=== PATIENT | male | born 1945 | race Two or more races ===

== ENCOUNTER 2017-09-19 17:26 | Inpatient (IN) | payer OTHER ==
[~2017-09-19] VITALS: Ht 167.6 cm; Wt 93.5 kg
[2017-09-19] MEDS ORDERED: HEPARIN SODIUM (PORCINE) 5000 UNITS/ML 1ML VIAL ONE (17:34)
[2017-09-19] MEDS ORDERED: ASPirin 81 mg TAB PO ONE (17:45)
[2017-09-19] MEDS ORDERED: HEPARIN SODIUM (PORCINE) 5000 UNITS/ML 1ML VIAL IV ONE ×2 (17:45→19:00)
[2017-09-19] MEDS ORDERED: IODIXANOL 320MG/ML 100ML BTL IV ONE (17:48)
[2017-09-19] MEDS ORDERED: LIDOCAINE 2%HCL (LOCAL ANESTH.) INJ 20ML MDV ONE (17:48)
[2017-09-19] MEDS ORDERED: fentaNYL CITRATE 100 MCG/2 ML VL ONE (17:55)
[2017-09-19] MEDS ORDERED: SODIUM CHL 0.9% 50 ML ONE (17:55)
[2017-09-19] MEDS ORDERED: MIDAZOLAM HCL 1MG/1ML-2 ML VIAL ONE (17:55)
[2017-09-19] MEDS ORDERED: ANGIOMAX 250 MG VIAL IV ONE (17:55)
[2017-09-19 17:56] LABS: Basophils # (auto) 0.1 uL; Basophils % (auto) 0.6 % (0.0-2.0); Eosinophils # (auto) 0.1 uL; Eosinophils % (auto) 1.3 % (0.0-7.0); Hematocrit 40.4 % (41.0-53.0); Hemoglobin 12.8 g/dL (13.5-17.5); Lymphocytes # (auto) 4.7 uL; Lymphocytes % (auto) 42.6 % (10.0-50.0); Mean Corpuscular Hemoglobin 30.9 pg (28.0-32.0); Mean Corpuscular Hgb Conc. 31.6 g/dL (32.0-36.0); Mean Corpuscular Volume 97.7 fL (80.0-100.0); Monocytes # (auto) 0.5 uL; Neutrophils # (auto) 5.6 uL; Neutrophils % (auto) 50.5 % (37.0-80.0); Nucleated Red Blood Cells % 0.3 %; Platelet Count (auto) 262 10^3/uL (140-450); Red Blood Cells 4.13 10^6/uL (4.5-5.90); Red Cell Distribution Width 15.7 % (11.8-14.3)
[2017-09-19] MEDS ORDERED: ATROPINE SULF 0.5 MG/5ML SYR ONE (18:03)
[2017-09-19 18:04] LABS: INR 0.95 (0.9-1.15); Partial Thromboplastin Time 26.2 sec (22.64-33.71); Prothrombin Time 10.3 sec (9.37-12.3)
[2017-09-19 18:11] LABS: Albumin 3.5 g/dL (3.4-5.0); BUN/Creatinine Ratio 19.5; Bilirubin, Total 0.3 mg/dL (0.2-1.0); Calcium 8.1 mg/dL (8.5-10.1); Magnesium 2.5 mg/dL (1.6-2.6); Potassium 3.1 mmol/L (3.5-5.1); Total Protein 7.6 g/dL (6.4-8.2)
[2017-09-19] MEDS ORDERED: EPTIFIBATIDE INJ (2MG/ML) 10ML VIAL IV ONE ×2 (18:17→18:19)
[2017-09-19] MEDS: HEPARIN DRIP/D5W 100UNITS/ML 250 ML IV SCH (18:44)
[2017-09-19] MEDS ORDERED: HEPARIN DRIP/D5W 100UNITS/ML 250 ML IV SCH (18:58)
[2017-09-19] MEDS ORDERED: NITROGLYCERIN 0.4 MG SL TAB SL PRN (19:00)
[2017-09-19] MEDS ORDERED: MORPHINE SULF INJ 2 MG/ML SYRINGE 1ML IV PRN ×2 (19:00→21:15)
[2017-09-19] MEDS ORDERED: POTASSIUM CHL 20 Meq TABLET PO ONE (19:15)
[2017-09-19] MEDS ORDERED: FUROSEMIDE 20 MG/2 ML VIAL IV ONE (19:30)
[2017-09-19] MEDS ORDERED: LIDOCAINE 50MG/5ML INJ 5ML SYRINGE IV ONE (19:30)
[2017-09-19 20:04] LABS: Basophils # (auto) 0 uL; Basophils % (auto) 0.2 % (0.0-2.0); Eosinophils # (auto) 0 uL; Eosinophils % (auto) 0.2 % (0.0-7.0); Hematocrit 36.9 % (41.0-53.0); Hemoglobin 11.6 g/dL (13.5-17.5); Mean Corpuscular Hemoglobin 31.1 pg (28.0-32.0); Mean Corpuscular Hgb Conc. 31.4 g/dL (32.0-36.0); Mean Corpuscular Volume 98.9 fL (80.0-100.0); Monocytes # (auto) 0.9 uL; Monocytes % (auto) 4.5 % (0.0-12.0); Neutrophils # (auto) 17.6 uL; Neutrophils % (auto) 90.1 % (37.0-80.0); Platelet Count (auto) 216 10^3/uL (140-450); Red Blood Cells 3.73 10^6/uL (4.5-5.90); Red Cell Distribution Width 15.4 % (11.8-14.3); White Blood Cell 19.6 10^3/uL (4.4-10.8)
[2017-09-19] MEDS ORDERED: DOPamine 1600MCG/ML D5W 250 ML IV ONE (20:05)
[2017-09-19] MEDS ORDERED: SODIUM CHLORIDE 0.9% 250 ML IV ONE (20:15)
[2017-09-19] MEDS: DOPamine 1600MCG/ML D5W 250 ML IV SCH (20:15)
[2017-09-19] MEDS ORDERED: NOREPINEPHRINE 8 MG/250ML KIT 250 ML IV ONE (20:19)
[2017-09-19 20:20] LABS: INR 1.83 (0.9-1.15); Prothrombin Time 20.1 sec (9.37-12.3)
[2017-09-19] MEDS: NOREPINEPHRINE 8 MG/250ML KIT 250 ML IV SCH ×2 (20:20→23:48)
[2017-09-19] MEDS ORDERED: NOREPINEPHRINE 8 MG/250ML KIT 250 ML IV SCH (21:00)
[2017-09-19] MEDS ORDERED: MORPHINE SULF INJ 2 MG/ML SYRINGE 1ML ONE (21:09)
[2017-09-19] MEDS ORDERED: PANTOPRAZOLE 40 MG/10 ML VIAL IV ONE ×2 (21:10→21:15)
[2017-09-19] MEDS ORDERED: ONDANSETRON HCL 4 MG/2 ML VIAL ONE (21:28)
[2017-09-19 21:36] LABS: Basophils # (auto) 0 uL; Basophils % (auto) 0.2 % (0.0-2.0); Eosinophils # (auto) 0 uL; Eosinophils % (auto) 0.2 % (0.0-7.0); Hematocrit 29.5 % (41.0-53.0); Hemoglobin 9.2 g/dL (13.5-17.5); Lymphocytes # (auto) 1.1 uL; Lymphocytes % (auto) 6.9 % (10.0-50.0); Mean Corpuscular Hemoglobin 30.7 pg (28.0-32.0); Mean Corpuscular Hgb Conc. 31.3 g/dL (32.0-36.0); Mean Corpuscular Volume 98.2 fL (80.0-100.0); Monocytes # (auto) 1.1 uL; Monocytes % (auto) 6.6 % (0.0-12.0); Neutrophils # (auto) 14.4 uL; Neutrophils % (auto) 86.1 % (37.0-80.0); Platelet Count (auto) 208 10^3/uL (140-450); Red Cell Distribution Width 15.3 % (11.8-14.3); White Blood Cell 16.7 10^3/uL (4.4-10.8)
[2017-09-19] MEDS ORDERED: VASOPRESSIN 20 UNIT/ML ONE ×2 (21:50→21:57)
[2017-09-19] MEDS ORDERED: PHENYLEPHRINE IV 250 ML IV ONE ×2 (21:52→23:42)
[2017-09-19 21:54] LABS: INR 1.28 (0.9-1.15); Partial Thromboplastin Time 66.4 sec (22.64-33.71)
[2017-09-19] MEDS: PHENYLEPHRINE INJ 20 MG in SODIUM CHL 0.9% 250 ML IV SCH ×2 (21:55→23:48)
[2017-09-19] MEDS: ATORVASTATIN 20 MG TAB PO SCH (22:00)
[2017-09-19] MEDS ORDERED: EPINEPHrine HCL 250 ML IV ONE (22:06)
[2017-09-19] MEDS: EPINEPHrine HCL 250 ML IV SCH ×2 (22:09→23:48)
[2017-09-19 22:10] LABS: Albumin 2.4 g/dL (3.4-5.0); BUN/Creatinine Ratio 21.9; Bilirubin, Total 0.4 mg/dL (0.2-1.0); Calcium 7.1 mg/dL (8.5-10.1); Magnesium 2.2 mg/dL (1.6-2.6); Potassium 3.6 mmol/L (3.5-5.1); Total Protein 5.2 g/dL (6.4-8.2)
[2017-09-19] MEDS ORDERED: SUCCINYLCHOLINE CHLORIDE 20 MG/ML 10ML VIAL IV ONE (22:21)
[2017-09-19] MEDS ORDERED: MIDAZOLAM HCL 5 MG/ML-1ML VIAL ONE (22:22)
[2017-09-19] MEDS ORDERED: ETOMIDATE (2MG/ML) 20ML VIAL IV ONE (22:22)
[2017-09-19 22:45] VITALS: BP 83/35
[2017-09-19] MEDS ORDERED: PROTAMINE SULFATE 10 MG/ML 5ML VIAL IV ONE ×2 (22:45→22:59)
[2017-09-19] MEDS ORDERED: MIDAZOLAM DRIP 50 mg/50mL 50 ML IV ONE (22:56)
[2017-09-19] MEDS: MIDAZOLAM DRIP 50 mg/50mL 50 ML IV SCH (23:00)
[2017-09-19 23:56] LABS: Basophils # (auto) 0.1 uL; Eosinophils # (auto) 0.2 uL
[2017-09-19 23:58] LABS: Basophils % (auto) 0.9 % (0.0-2.0); Eosinophils % (auto) 1.3 % (0.0-7.0); Hematocrit 41.3 % (41.0-53.0); Hemoglobin 13.7 g/dL (13.5-17.5); Lymphocytes # (auto) 5.3 uL; Lymphocytes % (auto) 44.9 % (10.0-50.0); Mean Corpuscular Hemoglobin 32.4 pg (28.0-32.0); Mean Corpuscular Volume 98.1 fL (80.0-100.0); Monocytes # (auto) 0.7 uL; Neutrophils # (auto) 5.6 uL; Neutrophils % (auto) 46.9 % (37.0-80.0); Nucleated Red Blood Cells % 0.4 %; Platelet Count (auto) 260 10^3/uL (140-450); Red Blood Cells 4.21 10^6/uL (4.5-5.90); Red Cell Distribution Width 15.7 % (11.8-14.3); White Blood Cell 11.9 10^3/uL (4.4-10.8)
[2017-09-20] VITALS (109 sets, daily range): BP systolic 54–201; BP diastolic 21–143
[2017-09-20] MEDS: VASOPRESSIN 50 UNITS in D5W 5% 247.5 ML IV SCH ×2
[2017-09-20] MEDS ORDERED: ETOMIDATE (2MG/ML) 20ML VIAL IV ONE
[2017-09-20] MEDS ORDERED: EPINEPHrine HCL 1 MG/10 ML SYRG IV ONE
[2017-09-20] MEDS ORDERED: MIDAZOLAM HCL 1MG/1ML-2 ML VIAL IM ONE
[2017-09-20] MEDS ORDERED: SUCCINYLCHOLINE CHLORIDE 20 MG/ML 10ML VIAL IV ONE
[2017-09-20] MEDS ORDERED: PHYTONADIONE (VIT K)10 MG/ML 1ML VIAL SUBCUT ONE
[2017-09-20 00:11] LABS: Albumin 1.7 g/dL (3.4-5.0); BUN/Creatinine Ratio 15.5; Bilirubin, Total 0.3 mg/dL (0.2-1.0); Calcium 6.4 mg/dL (8.5-10.1); Potassium 3.7 mmol/L (3.5-5.1); Total Protein 3.7 g/dL (6.4-8.2)
[2017-09-20 00:20] LABS: INR 1.36 (0.9-1.15)
[2017-09-20 00:24] LABS: Partial Thromboplastin Time > 170.00 sec (22.64-33.71)
[2017-09-20] MEDS ORDERED: VASOPRESSIN 20 UNIT/ML ONE (01:00)
[2017-09-20] MEDS ORDERED: PHENYLEPHRINE IV 500 ML IV ONE (01:04)
[2017-09-20] MEDS: PHENYLEPHRINE INJ 20 MG in SODIUM CHL 0.9% 250 ML IV SCH (01:10)
[2017-09-20 01:21] LABS: Lactic Acid w/Reflex 11.5 mmol/L (0.4-2.0)
[2017-09-20] MEDS ORDERED: InsuLIN REG 1unit/0.01ml Soln (100units/ml) SC ONE (01:45)
[2017-09-20] MEDS ORDERED: SODIUM BICARBONATE 8.4 % INJ 50ML VIAL IV ONE ×2 (01:45→04:45)
[2017-09-20] MEDS ORDERED: SODIUM BICARBONATE 8.4% INJ 50ML SYRINGE ONE (01:47)
[2017-09-20] MEDS ORDERED: InsuLIN REG 1unit/0.01ml Soln (100units/ml) ONE (01:49)
[2017-09-20] MEDS: EPINEPHrine HCL 250 ML IV SCH ×2 (02:39→06:42)
[2017-09-20] MEDS: DOPamine 1600MCG/ML D5W 250 ML IV SCH ×2 (02:50→07:43)
[2017-09-20 03:08] LABS: Mean Corpuscular Hemoglobin 30.5 pg (28.0-32.0); Red Blood Cells 1.75 10^6/uL (4.5-5.90)
[2017-09-20 03:10] LABS: Hematocrit 17.6 % (41.0-53.0); Mean Corpuscular Hgb Conc. 30.3 g/dL (32.0-36.0); Mean Corpuscular Volume 100.8 fL (80.0-100.0); Platelet Count (auto) 95 10^3/uL (140-450); Red Cell Distribution Width 16.9 % (11.8-14.3)
[2017-09-20 03:14] LABS: Hemoglobin 5.3 g/dL (13.5-17.5)
[2017-09-20 03:18] LABS: Basophils % (manual) 0 (0.0-2.0); Blast Cells 0; Eosinophils % (manual) 0 (0-7); Metamyelocytes % 0; Myelocytes % 0; Promyelocytes % 0; Reactive Lymphocytes 0
[2017-09-20] MEDS ORDERED: PHENYLEPHRINE HCL 10 MG/ML VL ONE ×2 (03:25→04:37)
[2017-09-20] MEDS ORDERED: PHENYLEPHRINE IV 250 ML IV ONE (03:26)
[2017-09-20] MEDS ORDERED: phytonadione 10 MG in SODIUM CHL 0.9% 50 ML IV ONE (04:00)
[2017-09-20] MEDS ORDERED: CALCIUM GLUC 4.65meq/50ml D5AE 50 ML IV ONE (04:00)
[2017-09-20 04:03] LABS: Albumin 1.6 g/dL (3.4-5.0); BUN/Creatinine Ratio 12.3; Bilirubin, Total 0.4 mg/dL (0.2-1.0); Calcium 6.1 mg/dL (8.5-10.1); Potassium 3.8 mmol/L (3.5-5.1); Total Protein 3.4 g/dL (6.4-8.2)
[2017-09-20 04:06] LABS: INR 1.47 (0.9-1.15); Prothrombin Time 16.1 sec (9.37-12.3)
[2017-09-20] MEDS: PHENYLEPHRINE INJ 40 MG in SODIUM CHL 0.9% 250 ML IV SCH ×3 (04:15→10:53)
[2017-09-20] MEDS: ACCU-CHEK COMFORT CURVE STRIP VI SCH ×5 (04:26→20:47)
[2017-09-20] MEDS: InsuLIN REG 1unit/0.01ml Soln (100units/ml) SC SCH ×5 (04:26→20:47)
[2017-09-20] MEDS ORDERED: phytonadione 1 ML ONE (04:37)
[2017-09-20] MEDS ORDERED: PROTAMINE SULFATE 50 MG in SODIUM CHL 0.9% 50 ML IV ONE (04:45)
[2017-09-20] MEDS ORDERED: PROTAMINE SULFATE 10 MG/ML 5ML VIAL IV ONE (04:51)
[2017-09-20] MEDS: NOREPINEPHRINE 8 MG/250ML KIT 250 ML IV SCH (05:49)
[2017-09-20 07:56] LABS: Band Neutrophils % (manual) 6; Lymphocytes % (manual) 8 (10.0-50.0); Monocytes % (manual) 2 (0-12)
[2017-09-20] MEDS: DOPamine 3200MCG/ML 250 ML IV SCH (08:15)
[2017-09-20 08:48] LABS: Basophils # (auto) 0 uL; Basophils % (auto) 0.2 % (0.0-2.0); Eosinophils # (auto) 0 uL; Eosinophils % (auto) 0.1 % (0.0-7.0); Hematocrit 33.9 % (41.0-53.0); Hemoglobin 10.8 g/dL (13.5-17.5); Lymphocytes # (auto) 1.1 uL; Lymphocytes % (auto) 7.2 % (10.0-50.0); Mean Corpuscular Hgb Conc. 31.9 g/dL (32.0-36.0); Mean Corpuscular Volume 94.2 fL (80.0-100.0); Monocytes # (auto) 0.5 uL; Monocytes % (auto) 3.2 % (0.0-12.0); Neutrophils # (auto) 14.1 uL; Neutrophils % (auto) 89.3 % (37.0-80.0); Nucleated Red Blood Cells % 0.1 %; Platelet Count (auto) 102 10^3/uL (140-450); Red Cell Distribution Width 16.2 % (11.8-14.3); White Blood Cell 15.8 10^3/uL (4.4-10.8)
[2017-09-20 09:10] LABS: INR 1.96 (0.9-1.15); Partial Thromboplastin Time 58.6 sec (22.64-33.71); Prothrombin Time 21.5 sec (9.37-12.3)
[2017-09-20] MEDS ORDERED: DOPamine 3200MCG/ML 250 ML IV SCH (09:35)
[2017-09-20] MEDS: NOREPINEPHRINE BITARTRATE 16 MG in D5W 5% 250 ML IV SCH ×2 (09:35→15:17)
[2017-09-20] MEDS: PANTOPRAZOLE 40 MG/10 ML VIAL IV SCH (09:51)
[2017-09-20] MEDS: ASPirin 81 mg TAB PO SCH (09:51)
[2017-09-20] MEDS: EPINEPHrine HCL INJECTION 8 MG in D5W 5% 250 ML IV SCH (10:50)
[2017-09-20] MEDS ORDERED: FUROSEMIDE 20 MG/2 ML VIAL IV ONE (11:00)
[2017-09-20 12:32] LABS: Hematocrit 26.2 % (41.0-53.0); Hemoglobin 8.5 g/dL (13.5-17.5); Mean Corpuscular Hgb Conc. 32.5 g/dL (32.0-36.0); Mean Corpuscular Volume 92.4 fL (80.0-100.0); Platelet Count (auto) 136 10^3/uL (140-450); Red Blood Cells 2.84 10^6/uL (4.5-5.90); Red Cell Distribution Width 15.9 % (11.8-14.3); White Blood Cell 15.3 10^3/uL (4.4-10.8)
[2017-09-20 13:04] LABS: Basophils % (manual) 0 (0.0-2.0); Blast Cells 0; Eosinophils % (manual) 0 (0-7); Metamyelocytes % 0; Myelocytes % 0; Promyelocytes % 0; Reactive Lymphocytes 0
[2017-09-20 13:37] LABS: Band Neutrophils % (manual) 3; Lymphocytes % (manual) 15 (10.0-50.0); Monocytes % (manual) 4 (0-12)
[2017-09-20] MEDS: fentaNYL Drip 2500mCg/250mlNS 250 ML IV SCH (14:10)
[2017-09-20 14:30] LABS: INR 1.33 (0.9-1.15); Partial Thromboplastin Time 33.3 sec (22.64-33.71); Prothrombin Time 14.5 sec (9.37-12.3)
[2017-09-20 15:07] LABS: Albumin 2.8 g/dL (3.4-5.0); BUN/Creatinine Ratio 9.2; Bilirubin, Total 0.7 mg/dL (0.2-1.0); Calcium 6.8 mg/dL (8.5-10.1); Potassium 4.8 mmol/L (3.5-5.1); Total Protein 6.2 g/dL (6.4-8.2)
[2017-09-20] MEDS: MIDAZOLAM DRIP 50 mg/50mL 50 ML IV SCH (15:28)
[2017-09-20 15:57] LABS: Creatinine, Urine 49 mg/dL (30.0-125.0); Sodium Urine 112 mmol/L (40-220)
[2017-09-20 16:31] LABS: Urine Bacteria FEW /hpf (None Seen); Urine Blood 3+ /uL (Negative); Urine Sperm PRESENT /hpf (None Seen); Urine WBC 4 /hpf (0 - 3)
[2017-09-20] MEDS: HEPARIN DRIP/D5W 100UNITS/ML 250 ML IV SCH (16:42)
[2017-09-20 17:47] LABS: Basophils # (auto) 0 uL; Basophils % (auto) 0.1 % (0.0-2.0); Eosinophils # (auto) 0 uL; Eosinophils % (auto) 0.1 % (0.0-7.0); Hematocrit 33.5 % (41.0-53.0); Hemoglobin 11.1 g/dL (13.5-17.5); Lymphocytes # (auto) 1.1 uL; Lymphocytes % (auto) 7.8 % (10.0-50.0); Mean Corpuscular Hemoglobin 29.6 pg (28.0-32.0); Mean Corpuscular Volume 89.8 fL (80.0-100.0); Monocytes # (auto) 0.5 uL; Monocytes % (auto) 3.6 % (0.0-12.0); Neutrophils # (auto) 12.1 uL; Neutrophils % (auto) 88.4 % (37.0-80.0); Nucleated Red Blood Cells % 0.1 %; Platelet Count (auto) 100 10^3/uL (140-450); Red Blood Cells 3.73 10^6/uL (4.5-5.90); Red Cell Distribution Width 15.8 % (11.8-14.3); White Blood Cell 13.7 10^3/uL (4.4-10.8)
[2017-09-20 17:48] LABS: INR 1.28 (0.9-1.15); Partial Thromboplastin Time 32.1 sec (22.64-33.71)
[2017-09-20] MEDS ORDERED: BUMETANIDE (0.25MG/ML) 4 ML VIAL IV ONE (20:30)
[2017-09-20] MEDS ORDERED: BUMETANIDE INJECTION 12.5 MG in GIVE UN-DILUTED 0 ML IV SCH (20:30)
[2017-09-20] MEDS: DEXTROSE (50%) 50ML SYRG IV PRN (20:47)
[2017-09-20] MEDS: ATORVASTATIN 20 MG TAB PO SCH (22:00)
[2017-09-20] MEDS: SODIUM BICARBONATE 50ML VIAL 100 ML in D5W 5% 1,000 ML IV SCH (22:30)
[2017-09-20 23:57] LABS: Eosinophils # (auto) 0.1 uL; Platelet Count (auto) 57 10^3/uL (140-450)
[2017-09-20 23:58] LABS: Basophils # (auto) 0 uL; Basophils % (auto) 0.1 % (0.0-2.0); Hematocrit 33.6 % (41.0-53.0); Hemoglobin 11.3 g/dL (13.5-17.5); Lymphocytes # (auto) 0.6 uL; Lymphocytes % (auto) 8.9 % (10.0-50.0); Mean Corpuscular Hemoglobin 30.1 pg (28.0-32.0); Mean Corpuscular Hgb Conc. 33.5 g/dL (32.0-36.0); Mean Corpuscular Volume 89.8 fL (80.0-100.0); Monocytes # (auto) 0.4 uL; Monocytes % (auto) 5.2 % (0.0-12.0); Neutrophils # (auto) 5.8 uL; Neutrophils % (auto) 84.8 % (37.0-80.0); Nucleated Red Blood Cells % 0.3 %; Red Blood Cells 3.74 10^6/uL (4.5-5.90); Red Cell Distribution Width 15.9 % (11.8-14.3); White Blood Cell 6.9 10^3/uL (4.4-10.8)
[2017-09-21] VITALS (75 sets, daily range): BP systolic 67–166; BP diastolic 37–77
[2017-09-21] MEDS: MIDAZOLAM DRIP 50 mg/50mL 50 ML IV SCH ×2 (03:28→08:54)
[2017-09-21] MEDS: ACCU-CHEK COMFORT CURVE STRIP VI SCH ×6 (03:46→19:55)
[2017-09-21] MEDS: InsuLIN REG 1unit/0.01ml Soln (100units/ml) SC SCH ×6 (03:46→19:54)
[2017-09-21] MEDS: DEXTROSE (50%) 50ML SYRG IV PRN (03:47)
[2017-09-21 04:37] LABS: Hematocrit 34.2 % (41.0-53.0); Hemoglobin 11.3 g/dL (13.5-17.5); Mean Corpuscular Hemoglobin 30.1 pg (28.0-32.0); Mean Corpuscular Hgb Conc. 33.2 g/dL (32.0-36.0); Mean Corpuscular Volume 90.8 fL (80.0-100.0); Platelet Count (auto) 71 10^3/uL (140-450); Red Blood Cells 3.76 10^6/uL (4.5-5.90); Red Cell Distribution Width 16.5 % (11.8-14.3); White Blood Cell 7.6 10^3/uL (4.4-10.8)
[2017-09-21 04:42] LABS: INR 1.44 (0.9-1.15); Partial Thromboplastin Time 34.1 sec (22.64-33.71); Prothrombin Time 15.7 sec (9.37-12.3)
[2017-09-21 04:49] LABS: Blast Cells 0; Eosinophils % (manual) 0 (0-7); Promyelocytes % 0; Reactive Lymphocytes 0
[2017-09-21 05:04] LABS: Band Neutrophils % (manual) 25; Basophils % (manual) 1 (0.0-2.0); Lymphocytes % (manual) 10 (10.0-50.0); Metamyelocytes % 11; Monocytes % (manual) 9 (0-12); Myelocytes % 2
[2017-09-21] MEDS ORDERED: SODIUM BICARBONATE 8.4% INJ 50ML SYRINGE ONE ×2 (06:25→18:26)
[2017-09-21] MEDS ORDERED: SODIUM BICARBONATE 8.4 % INJ 50ML VIAL IV ONE ×4 (06:30→18:15)
[2017-09-21 07:25] LABS: Potassium 4.2 mmol/L (3.5-5.1)
[2017-09-21 07:26] LABS: BUN/Creatinine Ratio 8.5; Bilirubin, Total 1.9 mg/dL (0.2-1.0); Calcium 6.8 mg/dL (8.5-10.1); Phosphorus 6.1 mg/dL (2.5-4.90)
[2017-09-21 07:27] LABS: Albumin 2.7 g/dL (3.4-5.0); Magnesium 1.8 mg/dL (1.6-2.6); Total Protein 5.5 g/dL (6.4-8.2)
[2017-09-21] MEDS: PHENYLEPHRINE INJ 40 MG in SODIUM CHL 0.9% 250 ML IV SCH ×2 (08:30→16:30)
[2017-09-21] MEDS: EPINEPHrine HCL INJECTION 8 MG in D5W 5% 250 ML IV SCH (08:54)
[2017-09-21] MEDS ORDERED: DEXTROSE 10% 1,000 ML IV SCH (09:15)
[2017-09-21] MEDS ORDERED: DEXTROSE 10% 1,000 ML IV ONE (09:24)
[2017-09-21] MEDS: PANTOPRAZOLE 40 MG/10 ML VIAL IV SCH (09:29)
[2017-09-21] MEDS ORDERED: BUMETANIDE (0.25 MG/ML) INJ 10ML IV ONE ×2 (09:30→10:00)
[2017-09-21] MEDS: ASPirin 81 mg TAB PO SCH (10:00)
[2017-09-21 10:05] LABS: Basophils # (auto) 0 uL; Lymphocytes # (auto) 0.4 uL; Monocytes # (auto) 0.4 uL
[2017-09-21 10:07] LABS: Basophils % (auto) 0.1 % (0.0-2.0); Eosinophils # (auto) 0 uL; Eosinophils % (auto) 0.5 % (0.0-7.0); Hematocrit 31.3 % (41.0-53.0); Hemoglobin 10.4 g/dL (13.5-17.5); Lymphocytes % (auto) 5.3 % (10.0-50.0); Mean Corpuscular Hemoglobin 30.1 pg (28.0-32.0); Mean Corpuscular Hgb Conc. 33.4 g/dL (32.0-36.0); Mean Corpuscular Volume 90.2 fL (80.0-100.0); Monocytes % (auto) 4.8 % (0.0-12.0); Neutrophils # (auto) 7.2 uL; Neutrophils % (auto) 89.3 % (37.0-80.0); Nucleated Red Blood Cells % 0.6 %; Platelet Count (auto) 50 10^3/uL (140-450); Red Blood Cells 3.47 10^6/uL (4.5-5.90); Red Cell Distribution Width 16.1 % (11.8-14.3); White Blood Cell 8.1 10^3/uL (4.4-10.8)
[2017-09-21] MEDS: SODIUM BICARBONATE 50ML VIAL 100 ML in D5W 5% 1,000 ML IV SCH (10:30)
[2017-09-21] MEDS: fentaNYL Drip 2500mCg/250mlNS 250 ML IV SCH (12:43)
[2017-09-21] MEDS: VASOPRESSIN 50 UNITS in D5W 5% 247.5 ML IV SCH ×3 (13:50)
[2017-09-21 14:16] LABS: Basophils # (auto) 0 uL; Basophils % (auto) 0.2 % (0.0-2.0); Eosinophils # (auto) 0.1 uL; Hemoglobin 11.5 g/dL (13.5-17.5); Lymphocytes # (auto) 0.6 uL; Monocytes # (auto) 0.5 uL; Neutrophils # (auto) 9.5 uL; Platelet Count (auto) 56 10^3/uL (140-450); White Blood Cell 10.7 10^3/uL (4.4-10.8)
[2017-09-21 14:19] LABS: Eosinophils % (auto) 0.5 % (0.0-7.0); Lymphocytes % (auto) 5.8 % (10.0-50.0); Mean Corpuscular Hemoglobin 30.5 pg (28.0-32.0); Mean Corpuscular Hgb Conc. 32.7 g/dL (32.0-36.0); Mean Corpuscular Volume 93.2 fL (80.0-100.0); Monocytes % (auto) 4.9 % (0.0-12.0); Neutrophils % (auto) 88.6 % (37.0-80.0); Nucleated Red Blood Cells % 0.5 %; Red Blood Cells 3.76 10^6/uL (4.5-5.90); Red Cell Distribution Width 17.2 % (11.8-14.3)
[2017-09-21 19:14] LABS: Mean Corpuscular Hgb Conc. 32.6 g/dL (32.0-36.0)
[2017-09-21 19:15] LABS: Hematocrit 26.2 % (41.0-53.0); Hemoglobin 8.5 g/dL (13.5-17.5); Mean Corpuscular Hemoglobin 30.5 pg (28.0-32.0); Mean Corpuscular Volume 93.6 fL (80.0-100.0); Platelet Count (auto) 43 10^3/uL (140-450); Red Cell Distribution Width 16.9 % (11.8-14.3); White Blood Cell 10.6 10^3/uL (4.4-10.8)
[2017-09-21 19:26] LABS: Basophils % (manual) 0 (0.0-2.0); Blast Cells 0; Metamyelocytes % 0; Myelocytes % 0; Promyelocytes % 0; Reactive Lymphocytes 0
[2017-09-21] MEDS ORDERED: MORPHINE SULFATE 4 MG/ML SYR/VIAL IV PRN ×3 (19:30→21:15)
[2017-09-21] MEDS: DOPamine 3200MCG/ML 250 ML IV SCH (20:30)
[2017-09-21 20:35] LABS: Band Neutrophils % (manual) 35; Eosinophils % (manual) 1 (0-7); Lymphocytes % (manual) 11 (10.0-50.0); Monocytes % (manual) 6 (0-12)
[2017-09-21] MEDS ORDERED: LORazepam 2MG/ML-1ML VIAL IV PRN (21:15)
== END 2017-09-21 21:24 | disposition expired | DRG 270 ==
LOC: ER 17:29 → CATH 17:30 → ICU WEST 17:31
PROVIDERS: ADMIT Internal Medicine; ATTEND Internal Medicine Geriatric Medicine
PROC: 5A02210 Assistance with Cardiac Output using Balloon Pump, Continuous (ICD-10-PCS; principal; 2017-09-19)
PROC: 02703ZZ Dilation of Coronary Artery, One Artery, Percutaneous Approach (ICD-10-PCS; 2017-09-19)
PROC: 5A12012 Performance of Cardiac Output, Single, Manual (ICD-10-PCS; 2017-09-19)
PROC: 4A023N7 Measurement of Cardiac Sampling and Pressure, Left Heart, Percutaneous Approach (ICD-10-PCS; 2017-09-19)
PROC: B2111ZZ Fluoroscopy of Multiple Coronary Arteries using Low Osmolar Contrast (ICD-10-PCS; 2017-09-19)
PROC: B2151ZZ Fluoroscopy of Left Heart using Low Osmolar Contrast (ICD-10-PCS; 2017-09-19)
PROC: 06HN33Z Insertion of Infusion Device into Left Femoral Vein, Percutaneous Approach (ICD-10-PCS; 2017-09-20)
PROC: 5A1945Z Respiratory Ventilation, 24-96 Consecutive Hours (ICD-10-PCS; 2017-09-20)
PROC: 0BH17EZ Insertion of Endotracheal Airway into Trachea, Via Natural or Artificial Opening (ICD-10-PCS; 2017-09-20)
PROC: 30233L1 Transfusion of Nonautologous Fresh Plasma into Peripheral Vein, Percutaneous Approach (ICD-10-PCS; 2017-09-20)
PROC: 30233N1 Transfusion of Nonautologous Red Blood Cells into Peripheral Vein, Percutaneous Approach (ICD-10-PCS; 2017-09-20)
PROC: 30233R1 Transfusion of Nonautologous Platelets into Peripheral Vein, Percutaneous Approach (ICD-10-PCS; 2017-09-20)
PROC: 30233K1 Transfusion of Nonautologous Frozen Plasma into Peripheral Vein, Percutaneous Approach (ICD-10-PCS; 2017-09-20)
DX: I21.09 ST elevation (STEMI) myocardial infarction involving other coronary artery of anterior wall (principal); K66.1 Hemoperitoneum; I46.9 Cardiac arrest, cause unspecified; J96.00 Acute respiratory failure, unspecified whether with hypoxia or hypercapnia; N17.0 Acute kidney failure with tubular necrosis; R57.8 Other shock; I47.2 Ventricular tachycardia; E87.2 Acidosis; S36.113A Laceration of liver, unspecified degree, initial encounter; I49.01 Ventricular fibrillation; D64.9 Anemia, unspecified; E11.649 Type 2 diabetes mellitus with hypoglycemia without coma; E78.00 Pure hypercholesterolemia, unspecified; I70.0 Atherosclerosis of aorta; K57.30 Diverticulosis of large intestine without perforation or abscess without bleeding; X58.XXXA Exposure to other specified factors, initial encounter; E78.5 Hyperlipidemia, unspecified; R34 Anuria and oliguria; F17.210 Nicotine dependence, cigarettes, uncomplicated; Z66 Do not resuscitate; I10 Essential (primary) hypertension; I25.10 Atherosclerotic heart disease of native coronary artery without angina pectoris; I25.2 Old myocardial infarction; Z82.49 Family history of ischemic heart disease and other diseases of the circulatory system; Y93.89 Activity, other specified; Y92.89 Other specified places as the place of occurrence of the external cause; Y99.8 Other external cause status
CPT/HCPCS: 33967; 36415; 36430; 36600; 71045; 71250; 74176; 74177; 76700; 76705; 80053; 80061; 81001; 82270; 82550; 82570; 82805; 82962; 83605; 83690; 83735; 84100; 84300; 84484; 85007; 85025; 85027; 85384; 85610; 85730; 86850; 86900; 86901; 86920; 87070; 87077; 87081; 87186; 87205; 92920; 93005; 93458; 93886; 94003; 96361; 96374; 96375; 99152; 99153; 99291; A4565; C9113; J0171; J0330; J0461; J0610; J1265; J1815; J2250; J2405; J3010; J3430; J3490; J7060; Q9967